=== PATIENT | male | born 1970 | race Caucasian/White ===

== ENCOUNTER 2016-08-22 12:56 | Day surgery (SDC) | payer BC ==
[~2016-08-22] VITALS: Ht 185.4 cm; Wt 179.2 kg
[2016-08-22] VITALS (13 sets, daily range): BP systolic 100–137; BP diastolic 46–80; PULSE 73–112; TEMP 98–98.5
[2016-08-22] MEDS ORDERED: TYLENOL 325MG325 MG PO (16:20)
[2016-08-22] MEDS ORDERED: ZOFRAN 4MG T4 MG/TAB PO (16:20)
[2016-08-23 02:04] VITALS: BP 118/51; PULSE 85; TEMP 98.3
[2016-08-23 05:34] VITALS: BP 122/59; PULSE 87; TEMP 98.3
[2016-08-23 07:46] LABS: MEAN CELL VOLUME 88 fl (80.0-100.0); MEAN CORPUSCULAR HGB CONC 33 g/dl (33.0-37.0); PLATELET COUNT 238 K/mm3 (130-400); RED BLOOD COUNT 4.06 M/mm3 (4.20-5.60); REDCELL DISTRIBUTION WIDTH-CV 12.8 % (11.5-14.5); WHITE BLOOD COUNT 6.6 K/mm3 (4.8-10.8)
[2016-08-23 08:15] LABS: ADJUSTED CALCIUM 8.7 mg/dL (8.4-10.2); ALBUMIN 3.1 gm/dL (3.5-5.0); BILIRUBIN,TOTAL 0.9 mg/dL (0.0-1.0); CREATININE, serum 0.85 mg/dL (0.66-1.25); POTASSIUM 3.6 mmol/L (3.4-5.0); TOTAL PROTEIN 6.1 gm/dL (6.4-8.2)
[2016-08-23 08:17] LABS: HEMATOCRIT 35.7 % (42.0-52.0); HEMOGLOBIN 11.8 g/dl (13.5-18.0); MEAN CORPUSCULAR HEMOGLOBIN 29 pg (27.0-31.0)
[2016-08-23 10:21] VITALS: BP 139/62; PULSE 87; TEMP 98.2
[2016-08-23 13:58] VITALS: BP 139/61; PULSE 80; TEMP 97.8
[2016-08-23 17:52] VITALS: BP 122/67; PULSE 85; TEMP 98.9
[2016-08-23 21:36] VITALS: BP 159/90; PULSE 87; TEMP 98.3
[2016-08-24 01:21] VITALS: BP 137/67; PULSE 80; TEMP 98.1
[2016-08-24 05:53] VITALS: BP 142/74; PULSE 85; TEMP 98.3
[2016-08-24 07:23] LABS: ALBUMIN 3.3 gm/dL (3.5-5.0); BILIRUBIN,TOTAL 0.8 mg/dL (0.0-1.0); CALCIUM 8.4 mg/dL (8.4-10.2); CREATININE, serum 0.77 mg/dL (0.66-1.25); POTASSIUM 3.4 mmol/L (3.4-5.0); TOTAL PROTEIN 6.6 gm/dL (6.4-8.2)
[2016-08-24 09:36] VITALS: BP 119/58; PULSE 70; TEMP 98.3
== END 2016-08-24 13:00 | disposition home or self-care (01) ==
LOC: SDCO 12:56 → SURG 13:06 → SDCO 08-24 13:00
PROVIDERS: Surgery
DX: K80.00 Calculus of gallbladder with acute cholecystitis without obstruction (principal); Z85.72 Personal history of non-Hodgkin lymphomas; Z92.21 Personal history of antineoplastic chemotherapy
CPT/HCPCS: OP; J0690; J1100; J1885; J1956; J2405; J2704; J2710; J3010; J7030; Q9967

== ENCOUNTER → 2016-08-22 | Outpatient (REF) ==
[~2016-08-22] VITALS: Ht 185.4 cm; Wt 179.2 kg
[~2016-08-22] MED LIST: TYLENOL 325MG325 MG PO; ZOFRAN 4MG T4 MG/TAB PO
[2016-08-22 13:00] VITALS: BP 137/77; PULSE 112; TEMP 98.5
== END ==
LOC: ZLAB.WCH 11:45
DX: Z01.89 Encounter for other specified special examinations (principal)

== ENCOUNTER 2019-11-04 07:18 | Emergency (ER) | payer BC ==
[~2019-11-04] VITALS: Ht 185.4 cm; Wt 136.4 kg
[2019-11-04 07:24] VITALS: BP 127/82; TEMP 98
[2019-11-04] MEDS ORDERED: CLEOCIN HCL300 MG PO (07:41)
[2019-11-04] MEDS ORDERED: DOXYCYCLINE 10100 MG PO (07:42)
[2019-11-04 08:07] LABS: BASO # 0.1 (0.0-0.2); BASO % 0.6 % (0.0-2.0); EOS # 0.2 (0.0-0.7); EOS % 1.9 % (0-4.0); GRAN # 7.7 (1.4-6.5); GRAN % 71.7 % (42.2-75.2); HEMATOCRIT 41.9 % (42.0-52.0); HEMOGLOBIN 14.4 g/dl (13.5-18.0); LYMPH # 1.9 (1.2-3.4); LYMPH % 17.6 % (20.0-51.0); MEAN CELL VOLUME 84 fl (80.0-100.0); MEAN CORPUSCULAR HEMOGLOBIN 29 pg (27.0-31.0); MEAN CORPUSCULAR HGB CONC 34 g/dl (33.0-37.0); MEAN PLATELET VOLUME 10.1 fl (7.4-10.4); MONO # 0.8 (0.1-0.6); MONO % 7.7 % (1.7-9.3); PLATELET COUNT 267 K/mm3 (130-400); REDCELL DISTRIBUTION WIDTH-CV 12.3 % (11.5-14.5)
[2019-11-04 08:18] LABS: ALBUMIN 3.9 gm/dL (3.5-5.0); BILIRUBIN,TOTAL 0.8 mg/dL (0.0-1.0); CALCIUM 8.8 mg/dL (8.4-10.2); CREATININE, serum 0.67 (0.66-1.25); POTASSIUM 4.1 mmol/L (3.4-5.0); TOTAL PROTEIN 6.9 gm/dL (6.4-8.2)
[2019-11-04] MEDS ORDERED: NORCO 325 MG-51 TAB PO (10:44)
[2019-11-04 10:47] VITALS: PULSE 81
== END 2019-11-04 10:45 | disposition home or self-care (01) ==
LOC: COL.ER 07:18
PROVIDERS: Emergency Medicine
DX: L03.315 Cellulitis of perineum (principal); Z90.49 Acquired absence of other specified parts of digestive tract
CPT/HCPCS: J1815; J2270; J7030; Q9967

== ENCOUNTER 2020-04-05 10:59 | Day surgery (SDC) | payer BC ==
[2020-04-05] VITALS (7 sets, daily range): BP systolic 103–113; BP diastolic 61–77; PULSE 57–89; TEMP 98
[~2020-04-05] VITALS: Ht 185.5 cm; Wt 146.5 kg
[~2020-04-05 10:59] MED LIST changes: +ASPIRIN E.C. 8181 MG PO; +CLEOCIN HCL300 MG PO; +DOXYCYCLINE 10100 MG PO; +FLAGYL500 MG PO; +GLUCOPHAGE1000 MG PO; +LEVAQUIN 750MG750 M1 PO; +NORCO 325 MG-51 TAB PO; +TOPROL XL 25MG25 MG PO
[2020-04-05 12:31] LABS: POTASSIUM 4.4 mmol/L (3.4-5.0)
[2020-04-05 12:34] LABS: PROTHROMBIN TIME 11.1 SECONDS (9.7-12.8)
[2020-04-05] MEDS ORDERED: ELIQUIS 5MG PO (12:41)
[2020-04-05] MEDS ORDERED: TOPROL XL 25MG25 MG PO (12:42)
[2020-04-05] MEDS ORDERED: ASPIRIN E.C. 8181 MG PO (12:42)
[2020-04-05] MEDS ORDERED: ZESTRIL 5MG5 MG PO (12:43)
[2020-04-05] MEDS ORDERED: KLOR-CON 1010 MEQ PO (12:43)
[2020-04-05] MEDS ORDERED: LIPITOR 40MG TA40 MG PO (12:44)
[2020-04-05] MEDS ORDERED: LASIX 20MG TABL20 MG PO (12:47)
[2020-04-05] MEDS ORDERED: CORDARONE200 MG/TAB PO (12:48)
[2020-04-05] MEDS ORDERED: GLUCOPHAGE1000 MG PO (12:48)
[2020-04-05] MEDS ORDERED: TYLENOL 325MG325 MG PO (12:49)
[2020-04-05] MEDS ORDERED: ALBUTEROL0.83 MG/ML IH (12:50)
[2020-04-05 13:05] LABS: THYROID STIMULATING HORMONE 1.05 uIU/mL (0.465-4.680)
--- NOTE | 2020-04-05 13:30 | NUR ---
Report from Ramón NORIEGA. Pt alert and oriented, denies pain at this time. VSS. Ramón NORIEGA called for ECG
--- NOTE | 2020-04-05 15:33 | NUR ---
DC instructions reviewed with pt, he expresses understanding. He is able to ambulate in room with steady gait. Tolerating PO without issue. IV DC'd with catheter intact. Pt is assisted out to 's car by wheelchair.
== END 2020-04-05 18:32 | disposition home or self-care (01) ==
LOC: COL.CAR 10:59
PROVIDERS: Internal Medicine Cardiovascular Disease
DX: I48.19 Other persistent atrial fibrillation (principal); I11.0 Hypertensive heart disease with heart failure; E78.5 Hyperlipidemia, unspecified; E11.9 Type 2 diabetes mellitus without complications; E66.9 Obesity, unspecified; M19.90 Unspecified osteoarthritis, unspecified site; G47.33 Obstructive sleep apnea (adult) (pediatric); J44.9 Chronic obstructive pulmonary disease, unspecified; I50.32 Chronic diastolic (congestive) heart failure; F17.290 Nicotine dependence, other tobacco product, uncomplicated; I95.9 Hypotension, unspecified; Z88.0 Allergy status to penicillin; Z91.040 Latex allergy status; Z79.01 Long term (current) use of anticoagulants; Z79.84 Long term (current) use of oral hypoglycemic drugs; Z90.49 Acquired absence of other specified parts of digestive tract; Z85.72 Personal history of non-Hodgkin lymphomas
CPT/HCPCS: J2704

== ENCOUNTER 2021-03-30 04:16 | Observation (INO) | payer BC ==
[~2021-03-30] VITALS: Ht 185.4 cm; Wt 131.8 kg
[~2021-03-30 04:16] MED LIST changes: +ALBUTEROL0.83 MG/ML IH; +CORDARONE200 MG/TAB PO; +ELIQUIS 5MG PO; +KLOR-CON 1010 MEQ PO; +LASIX 20MG TABL20 MG PO; +LIPITOR 40MG TA40 MG PO; +ZESTRIL 5MG5 MG PO
[2021-03-30 04:31] LABS: BASO # 0.1 K/mm3 (0.0-0.2); BASO % 0.9 % (0.0-2.0); EOS # 1.2 K/mm3 (0.0-0.7); EOS % 12.6 % (0.0-4.0); GRAN # 3.9 K/mm3 (1.4-6.5); GRAN % 42.6 % (42.2-75.2); HEMATOCRIT 41.4 % (42.0-52.0); HEMOGLOBIN 14.3 g/dl (13.5-18.0); LYMPH # 3.4 K/mm3 (1.2-3.4); LYMPH % 36.8 % (20.0-51.0); MEAN CELL VOLUME 82 fl (80.0-100.0); MEAN CORPUSCULAR HEMOGLOBIN 28 pg (27-31); MEAN CORPUSCULAR HGB CONC 35 g/dl (33.0-37.0); MEAN PLATELET VOLUME 9.3 fl (7.4-10.4); MONO # 0.6 K/mm3 (0.1-0.6); MONO % 6.8 % (1.7-9.3); PLATELET COUNT 321 K/mm3 (130-400); RED BLOOD COUNT 5.04 M/mm3 (4.20-5.60); REDCELL DISTRIBUTION WIDTH-CV 12.8 % (11.5-14.5)
[2021-03-30 04:52] LABS: ALANINE AMINOTRANSFERASE 21 U/L (0-55); ALKALINE PHOSPHATASE 103 U/L (40-150); ANION GAP 12 mmol/L (7-16); AST,SGOT 22 U/L (5-34); BILIRUBIN,TOTAL 0.6 mg/dL (0.2-1.2); BLOOD UREA NITROGEN 10 mg/dL (8-26); CALCIUM 9.5 mg/dL (8.4-10.2); CARBON DIOXIDE 22 mmol/L (22-29); CHLORIDE 99 mmol/L (98-107); CREATININE, serum 1.07 mg/dL (0.72-1.25); POTASSIUM 3.3 mmol/L (3.5-4.5); SODIUM 133 mmol/L (136-145); TOTAL PROTEIN 7.2 gm/dL (6.2-8.1)
[2021-03-30 04:58] LABS: GLUCOSE 437 mg/dL (70-99); TROPONIN-I < 0.010 ng/mL (0.00-0.033)
[2021-03-30] MEDS ORDERED: MULTAQ400 MG PO (05:56)
[2021-03-30] MEDS ORDERED: PREDNISONE1 MG (08:11)
[2021-03-30] MEDS ORDERED: LEVAQUIN 5500 MG/TA1 PO (08:12)
--- NOTE | 2021-03-30 10:47 | NUR ---
Sw spoke with who their preference to return home once pt is medically stable, Karuna via phone 10:45 am due to pt struggling to speak, due to coughing. [place] two [place]. Karuna reports that her is independent on all ADLS and does not use any DMEs. Krauna informed Sw that he had a DPOA-HC made when he was in the hospital the last time. The pt PCP is Joanne Basurto and gets his medications from [facility]. The pt has never used HH services before. No other needs stated at this time. Sw to await further recommendations and follow up as needed. D/c: Home w/ spouse
[2021-03-30 11:57] VITALS: BP 158/83; PULSE 82; TEMP 97.7
[2021-03-30 15:16] VITALS: BP 147/84; PULSE 73; TEMP 97.7
--- NOTE | 2021-03-30 18:32 | NUR ---
Pt had uneventful day. He rested in bed through the day. Asked for 2L O2 via NC for comfort. Pt has occasional cough, PRN cough medications administered. Pt had pain to R rib with cough. He denies any N/V. POC discussed with patient. Call light within reach.
[2021-03-30 20:00] VITALS: BP 147/75; PULSE 92; TEMP 97.6
--- NOTE | 2021-03-30 22:26 | NUR ---
PT IS PLEASANT, ALERT AND ORIENTATED. PT STATES 7/10 PAIN IN BACK FROM BED AND COUGHING. PT ASSESSMENT IS COMPLETED. PT STATED THAT 2L NC HELPS FEEL A BIT BETTER WITH BREATHING. PT ABLE TO PLACE AND REMOVE COMFORT REQUIRES. PT TOOK ALL MEDICATIONS, HAS NO OTHER COMPLAINTS OR NEEDS AT THIS TIME.
[2021-03-31] VITALS: BP 134/79; PULSE 74; TEMP 97.8
[2021-03-31 04:00] VITALS: BP 132/71; PULSE 80; TEMP 97.9
--- NOTE | 2021-03-31 06:15 | NUR ---
PT HAD AN UNEVENTFUL NIGHT. PT SLEPT FOR A FEW HOURS BEFORE UP AGAIN. PT STATED HAS BACK PAIN FROM COUGHING. ROBITUSSIN GIVEN 2X DURING SHIFT. PT STATES HE WAS ABLE TO COUGH UP SOME PHLEGM THAT WAS IN THROAT/MOUTH WHEN WOKE UP. PT PLEASANT, ALERT AND ORIENTATED. CALL LIGHT IN REACH. ALL MEDICATIONS GIVEN. NO OTHER NEEDS AT THIS TIME.
[2021-03-31 07:11] LABS: HEMATOCRIT 42.2 % (42.0-52.0); HEMOGLOBIN 14.6 g/dl (13.5-18.0); MEAN CELL VOLUME 82 fl (80.0-100.0); MEAN CORPUSCULAR HEMOGLOBIN 28 pg (27-31); MEAN CORPUSCULAR HGB CONC 35 g/dl (33.0-37.0); PLATELET COUNT 335 K/mm3 (130-400); RED BLOOD COUNT 5.14 M/mm3 (4.20-5.60); REDCELL DISTRIBUTION WIDTH-CV 12.7 % (11.5-14.5)
[2021-03-31 07:31] LABS: CALCIUM 9.5 mg/dL (8.4-10.2); CREATININE, serum 0.83 mg/dL (0.72-1.25); MAGNESIUM 2.2 mg/dL (1.6-2.6); POTASSIUM 3.8 mmol/L (3.5-4.5)
[2021-03-31 07:57] VITALS: BP 112/52; PULSE 90; TEMP 98.1
--- NOTE | 2021-03-31 08:29 | NUR ---
Patient laying in bed, on his laptop upon entering the room. Patient is A&Ox4, independent, and has call light w/in reach. Patient accepted his flu shot and information sheet was provided. PRN tylenol given for back pain, which patient states is d/t laying in bed. Patient also requested PRN robitussin next time it is due. This RN told the patient he could have it q6h and that 1100 would be when he could have it next. Patient is very pleasant.
--- NOTE | 2021-03-31 10:47 | NUR ---
Initial visit; Patient thanked Looper Fixer for offering God's blessings though declined spiritual care at this time.
[2021-03-31 11:17] VITALS: BP 106/57; PULSE 80; TEMP 97.5
[2021-03-31 16:59] VITALS: BP 142/83; PULSE 75; TEMP 97.6
--- NOTE | 2021-03-31 18:02 | NUR ---
Patient has done well today and has not had any complaints other than his cough and back pain. IV went bad in the right AC. This RN attempted and IV in [facility] left AC and was unsuccessful. Peg - LEANN, to attempt an IV.
[2021-03-31 19:57] VITALS: BP 132/68; PULSE 84; TEMP 97.6
--- NOTE | 2021-03-31 23:28 | NUR ---
PT IS PLEASANT, COOPERATIVE AND ALERT&ORIENTATED. PT TOOK ALL MEDICATIONS PRESCRIBED. PER PT REQUEST WANTED COUGH SYRUP AND TYLENOL. PT STATES HE IS BORED AND RESTLESS BEING IN THE HOSPITAL. NO OTHER NEEDS AT THIS TIME.
[2021-04-01 00:37] VITALS: BP 119/58; PULSE 67; TEMP 98
[2021-04-01 04:35] VITALS: BP 122/70; PULSE 60; TEMP 98
--- NOTE | 2021-04-01 06:20 | NUR ---
PT HAD AN OVERALL UNEVENTFUL NIGHT. PT WOKE UP RIGHT BEFORE MORNING MEDS, STATED HAD A HUGE COUGHING FIT. LEFT WITH 9/10 PAIN IN LOWER LEFT RIB SECTION. PT STATES "HE FEELS HE TOOK A DIRECT HIT TO THIS AREA" TYLENOL GIVEN. LADI ELLINGTON NOTIFIED. PLACED ORDER FOR XRAY TO BE DONE TO CHECK AREA TO BE SAFE. CALL LIGHT IN REACH, NO OTHER NEEDS AT THIS TIME. PT STATES HE HAS GOTTEN MORE MUCUS/PHLEGM OUT WITH ROBITUSSIN COUGH SYRUP.
[2021-04-01 07:33] VITALS: BP 119/57; PULSE 61; TEMP 97.6
[2021-04-01 07:43] LABS: BASO % 0.1 % (0.0-2.0); EOS % 0.1 % (0.0-4.0); GRAN % 89.5 % (42.2-75.2); HEMATOCRIT 40.2 % (42.0-52.0); HEMOGLOBIN 13.8 g/dl (13.5-18.0); LYMPH # 0.9 K/mm3 (1.2-3.4); LYMPH % 7.6 % (20.0-51.0); MEAN CELL VOLUME 82 fl (80.0-100.0); MEAN CORPUSCULAR HEMOGLOBIN 28 pg (27-31); MEAN CORPUSCULAR HGB CONC 34 g/dl (33.0-37.0); MONO # 0.3 K/mm3 (0.1-0.6); MONO % 2.2 % (1.7-9.3); PLATELET COUNT 318 K/mm3 (130-400); RED BLOOD COUNT 4.88 M/mm3 (4.20-5.60)
[2021-04-01 07:57] LABS: CREATININE, serum 0.81 mg/dL (0.72-1.25); POTASSIUM 4.3 mmol/L (3.5-4.5)
[2021-04-01] MEDS ORDERED: PREDNISONE20 MG PO (10:17)
[2021-04-01 11:45] VITALS: BP 138/82; PULSE 81; TEMP 98
[2021-04-01] MEDS ORDERED: BLUE-EMU LIDOC1 EACH TP (15:04)
[2021-04-01] MEDS ORDERED: FREESTYLE PREC1 EAC5 MC (16:14)
[2021-04-01] MEDS ORDERED: LANCETS MC (16:15)
[2021-04-01] MEDS ORDERED: BD ALCOHOL1 SWA MC (16:16)
[2021-04-01] MEDS ORDERED: TRUE COMFORT P1 EAC1 MC (16:18)
[2021-04-01] MEDS ORDERED: LEVEMIR FLEX100 U/ML SQ (16:29)
[2021-04-01] MEDS ORDERED: NOVOLOG FLEX100 U/ML SQ (16:30)
[2021-04-01] MEDS ORDERED: NIRAVAM0.25 MG PO (16:35)
[2021-04-01] MEDS ORDERED: GLUCOSE TEST ST1 DEV MC (16:45)
== END 2021-04-01 17:30 | disposition home or self-care (01) ==
LOC: COL.ER 04:16 → SURG 06:20 → MEDICAL 06:20
PROVIDERS: Physician Assistant; Student in an Organized Health Care Education/Training Program; ADMIT Internal Medicine
DX: J44.1 Chronic obstructive pulmonary disease with (acute) exacerbation (principal); E87.6 Hypokalemia; I48.91 Unspecified atrial fibrillation; E11.65 Type 2 diabetes mellitus with hyperglycemia; I11.0 Hypertensive heart disease with heart failure; I50.30 Unspecified diastolic (congestive) heart failure; Z20.822 Contact with and (suspected) exposure to COVID-19; E78.5 Hyperlipidemia, unspecified; G47.33 Obstructive sleep apnea (adult) (pediatric); E66.9 Obesity, unspecified; F17.220 Nicotine dependence, chewing tobacco, uncomplicated; Z85.72 Personal history of non-Hodgkin lymphomas; Z79.01 Long term (current) use of anticoagulants; Z92.21 Personal history of antineoplastic chemotherapy; Z79.899 Other long term (current) drug therapy
CPT/HCPCS: G0008; G0378; J1815; J2920; J7040

== ENCOUNTER 2021-11-21 15:32 | Emergency (ER) | payer BC ==
[~2021-11-21] VITALS: Ht 185.4 cm; Wt 145.5 kg
[~2021-11-21 15:32] MED LIST changes: +BD ALCOHOL1 SWA MC; +BLUE-EMU LIDOC1 EACH TP; +FREESTYLE PREC1 EAC5 MC; +GLUCOSE TEST ST1 DEV MC; +LANCETS MC; +LEVAQUIN 5500 MG/TA1 PO; +LEVEMIR FLEX100 U/ML SQ; +MULTAQ400 MG PO; +NIRAVAM0.25 MG PO; +NOVOLOG FLEX100 U/ML SQ; +PREDNISONE1 MG; +PREDNISONE20 MG PO; +TRUE COMFORT P1 EAC1 MC
[2021-11-21 15:46] VITALS: TEMP 98.8
[2021-11-21 16:06] LABS: BASO # 0.1 K/mm3 (0.0-0.2); BASO % 0.9 % (0.0-2.0); EOS # 0.4 K/mm3 (0.0-0.7); EOS % 3.9 % (0.0-4.0); GRAN # 5.1 K/mm3 (1.4-6.5); GRAN % 56.5 % (42.2-75.2); HEMATOCRIT 44.5 % (42.0-52.0); HEMOGLOBIN 15.3 g/dl (13.5-18.0); LYMPH # 2.8 K/mm3 (1.2-3.4); LYMPH % 30.8 % (20.0-51.0); MEAN CELL VOLUME 85 fl (80.0-100.0); MEAN CORPUSCULAR HEMOGLOBIN 29 pg (27-31); MEAN CORPUSCULAR HGB CONC 34 g/dl (33.0-37.0); MEAN PLATELET VOLUME 9.6 fl (7.4-10.4); MONO # 0.7 K/mm3 (0.1-0.6); MONO % 7.5 % (1.7-9.3); PLATELET COUNT 280 K/mm3 (130-400); RED BLOOD COUNT 5.25 M/mm3 (4.20-5.60); REDCELL DISTRIBUTION WIDTH-CV 12.6 % (11.5-14.5)
[2021-11-21 16:10] LABS: INR 1.2 (0.8-3.0); PROTHROMBIN TIME 13.8 SECONDS (9.7-12.8)
[2021-11-21 16:12] LABS: PARTIAL THROMBOPLASTIN TIME 34.6 SECONDS (26.0-37.0)
[2021-11-21 16:24] LABS: BILIRUBIN,TOTAL 0.8 mg/dL (0.2-1.2); CALCIUM 9.9 mg/dL (8.4-10.2); CREATININE, serum 0.97 mg/dL (0.72-1.25); POTASSIUM 3.6 mmol/L (3.5-4.5); TOTAL PROTEIN 7.3 gm/dL (6.2-8.1)
[2021-11-21 16:32] LABS: TROPONIN-I 0.011 ng/mL (0.00-0.033)
[2021-11-21 19:55] VITALS: BP 137/82; PULSE 63
== END 2021-11-21 19:56 | disposition home or self-care (01) ==
LOC: COL.ER 15:32
PROVIDERS: Physician Assistant
DX: R07.89 Other chest pain (principal); E66.9 Obesity, unspecified; Z28.310 Unvaccinated for COVID-19; Z91.040 Latex allergy status
CPT/HCPCS: J1885